=== PATIENT | female | born 1985 ===

== ENCOUNTER 2022-11-11 10:10 | Emergency (ER) | payer SELFPAY ==
[~2022-11-11] VITALS: Ht 162.6 cm; Wt 63.0 kg
[2022-11-11 10:12] VITALS: BP 140/82
[2022-11-11] MEDS ORDERED: ACETAMINOPHEN 325MG TABLET PO STA (12:27)
[2022-11-11] MEDS ORDERED: FAMOTIDINE 20MG TABLET PO ONE (12:30)
[2022-11-11] MEDS ORDERED: ONDANSETRON 4MG ODT PO ONE (12:30)
[2022-11-11 13:20] LABS: CLARITY URINE CLEAR (CLEAR); COLOR URINE YELLOW (YELLOW); KETONES URINE NEGATIVE (NEGATIVE); LEUKOCYTE ESTERASE URINE TRACE (NEGATIVE); NITRITE URINE NEGATIVE (NEGATIVE); OCCULT BLOOD URINE NEGATIVE (NEGATIVE); PH URINE 6.5 (4.5-8.0); PROTEIN URINE NEGATIVE (NEGATIVE); SPECIFIC GRAVITY URINE 1.009 (1.005-1.030); UROBILINOGEN URINE 0.2 E.U./dL (0.2-1.0)
[2022-11-11] MEDS ORDERED: ONDA4TAB50 PO (13:52)
[2022-11-11] MEDS ORDERED: ACET-2708 PO (13:52)
== END 2022-11-11 14:22 | disposition home or self-care (01) ==
LOC: ER 10:10
DX: K29.00 Acute gastritis without bleeding (principal); R04.0 Epistaxis; R11.2 Nausea with vomiting, unspecified
CPT/HCPCS: 81003; 81025; 99284; Q0162